=== PATIENT | male | born 1980 | race Caucasian/White ===

== ENCOUNTER 2019-10-26 08:47 | Emergency (ER) | payer OTHER, SELFPAY ==
[2019-10-26 08:51] VITALS: BP 151/98; PULSE 65; RESP 20; TEMP 36.6; O2SAT 98; BMI 31.8
--- NOTE | 2019-10-26 09:03 | ED_ITS ---
HPI - Abdominal Pain General: Chief Complaint: Abdominal Pain Stated Complaint: back pain Time Seen by Provider: 10/26/19 09:01 History of Present Illness: HPI narrative: Patient is a 39-year-old male comes into the ED with left flank pain. Says it started last night. He has not taken any pain medication for relief. Denies any problems urinating or blood in the urine. Patient has had kidney stones in the past and he says this feels exactly like previous kidney stones. Patient rates his pain at 10/10. Denies any other abdominal pain. Denies fever, chills, shortness of breath, chest pain, sore throat, nasal drainage, ear pain, vomiting, change or bowel issues. Review of Systems General: Reports: 10 or more systems reviewed and unremarkable except in HPI and below PFSH ED PFSH: Statuses (acute, chronic, etc) shown below reflect problem list status as previously entered and may not be historically accurate Medical History (Updated 10/26/19 @ 11:44 by WAQAS Garg) Hyperlipidemia (Acute) Hypertension (Acute) Kidney stones (Acute) Social History Smoking and tobacco status: former smoker Physical Exam Const: COMMON NORMALS: oriented x3 OTHER: Patient appeared in pain and was uncomfortable and walking around the room when I entered. HENMT: COMMON NORMALS: normocephalic HEAD & SCALP: normocephalic MOUTH: oral and palatal mucosa normal THROAT: posterior oropharynx normal and uvula midline Neck/C-Spine: COMMON NORMALS: supple GENERAL: Yes normal visual inspection Resp: COMMON NORMALS: normal respiratory effort, no retractions, no use of accessory muscles and clear to auscultation bilaterally AUSCULTATION: clear to auscultation bilaterally Cardio: COMMON NORMALS: regular rate, regular rhythm, S1 normal heart sound, S2 normal heart sound, no gallops, no clicks, no murmurs and peripheral pulses 2+ throughout RATE: regular rate RHYTHM: regular rhythm HEART SOUNDS: S1 normal and S2 normal PERIPHERAL PULSES: pulses 2+ throughout GI: COMMON NORMALS: normal to inspection, nondistended, normoactive bowel sounds, soft to palpation, non-tender and no masses PALPATION: Yes soft : COMMON NORMALS: Yes no CVA tenderness BLADDER/KIDNEY EXAM: Yes no CVA tenderness Back/Pelvis: COMMON NORMALS: no CVA tenderness Neuro: COMMON NORMALS: oriented x3 GAIT: Yes normal gait Course Vital Signs: Vital signs: Vital Signs Temperature 98 F 10/26/19 08:51 Pulse Rate 68 10/26/19 12:03 Respiratory Rate 18 10/26/19 12:03 Blood Pressure 126/76 10/26/19 12:03 Pulse Oximetry 98 10/26/19 12:03 MDM - Abdominal Pain Lab Data: Labs: Lab Results 10/26/19 Range/Units 10:17 Urine Color Yellow (Yellow) Urine Appearance Clear (CLEAR) Urine pH 5.0 (5-7) Ur Specific Gravit y 1.015 (1.005-1.030) Urine Protein Neg (Negative) Urine Glucose (UA) Norm (Normal) Urine Ketones Negative (Negative) Urine Occult Blood 3+ H (Negative) Urine Nitrate Negative (Negative) Urine Bilirubin Neg (Negative) Urine Urobilinogen Norm (Negative) mg/dL Ur Leukocyte Jody ase Negative (Negative) Urine RBC 40-50 H (0-2) /hpf Urine WBC None (0-5) /hpf Ur Squamous Epith Cells 10-15 H (0-5) Urine Bacteria Trace (NONE) Urine Mucus 2+ Discharge Plan Discharge Patient Disposition: Home, Self-Care Clinical Impression: Calculus of kidney Condition: Stable Prescriptions: New tamsulosin 0.4 mg capsule 0.4 mg PO DAILY Qty: 10 RF: 0 No Action simvastatin 20 mg Tablet 20 mg PO DAILY RF: 0 lisinopril 5 mg Tablet 5 mg PO DAILY RF: 0 Referrals: Javon Victor MD [Physician] - (loss prevention operations manager was asked to make referral for patient to Dr. Fraser office, will call clinic on 10.27.19 due clinic being closed for the holiday.) Edgar Nolasco DO [Primary Care Provider] - Discharge Diet: Regular Discharge Activity: Resume usual activity Patient Instructions: Hydrocodone/Acetaminophen (By mouth), Tamsulosin (By mouth), Kidney Stones, Flank Pain (ED), Pain Management Activity Restrictions/Additional Instructions: An [facility] urology referral has been made for you in the should be calling you in the next several days to set up an appointment. Drink plenty of fluids. Continue to strain urine to catch stone, so it can be analyzed. Take the prescribed tamsulosin to help pass stone. You can take Aleve or ibuprofen for pain management. Return to ED if you have trouble passing the stone or symptoms worsen. I'm giving you a prescription for hydrocodone?use this medication as needed breakout pain. Discharge Date/Time: 10/26/19 12:40 Coding Level of Care Code ED Field Application Engineer for Shalom Jose
--- NOTE | 2019-10-26 09:09 | PC.NURSE ---
Pt given urinal for urine specimen collection. Pt states he does not believe he can void at this time.
[2019-10-26 09:49] VITALS: RESP 18
[2019-10-26] MEDS: morphine 4 mg/mL SDV 1 mL IVP (09:49)
[2019-10-26] MEDS: ondansetron 2 mg/ML SDV 2 mL 4 MG IVP (09:49)
[2019-10-26] MEDS: sodium chloride 0.9% 1,000 ML 999 ML IV (09:50)
--- NOTE | 2019-10-26 10:13 | PC.NURSE ---
Rounded on pt, unable to void at this time. Feels much pain relief from Morphine.
--- NOTE | 2019-10-26 10:43 | CT_ITS ---
WS: [id number] CT ABDOMEN PELVIS TECHNIQUE: Noncontrast CT of the abdomen and pelvis with coronal and sagittal reformatted images. CLINICAL INFORMATION: Left flank pain COMPARISON: None. DLP: [address] scans at [facility] use at least one of these dose optimization techniques: automat ed exposure control; mA and/or kV adjustment per patient size (includes targeted exams where dose is matched to clinical indication); or iterative reconstruction. FINDINGS: Mild left hydronephrosis. Left mid ureteral calculus measuring 3 mm.Distal ureter is normal. Minimal inflammatory stranding about the left kidney. Additional tiny nonobstructing bilateral calyceal tip c alculi. Right ureter is normal. Noncontrast liver and gallbladder are unremarkable.Noncontrast spleen is unremarkable. Normal GE junc tion. Atelectasis in the lung bases. Normal caliber abdominal aorta. Normal small and large bowel. Ap pendix is normal. No free fluid in the pelvis. No abdominal lymphadenopathy. No other significant fin dings. Notified José Miguel Bonilla M.D. at 10/26/2019 11:[address]/CT kidney stone [id number] IMPRESSION: 1. 3 mm obstructing left midureteral calculus with mild left hydronephrosis. 2. Bilateral tiny nonobstructing calyceal tip calculi. 3. Appendix is normal and decompressed the right lower quadrant.
[2019-10-26 10:47] LABS: Add Urine Microscopic? YES; Bilirubin Urine Neg (Negative); Blood Urine 3+ (Negative); Glucose Urine UA Norm (Normal); Ketones Urine Negative (Negative); Leukocyte Esterase Urine Negative (Negative); Nitrate Urine Negative (Negative); Protein Urine Neg (Negative); Specific Gravity, Urine 1.015 (1.005-1.030); Urine Appearance Clear (CLEAR); Urine Color Yellow (Yellow); Urobilinogen Urine Norm (Negative)
[2019-10-26 10:48] VITALS: BP 131/79; PULSE 75; RESP 17; O2SAT 96
[2019-10-26 10:56] LABS: Add Urine Culture? Yes; Bacteria Urine TRACE; Mucus Urine 2+; RBC Urine 40-50 /hpf (0-2)
--- NOTE | 2019-10-26 11:06 | PC.NURSE ---
Pt given strainer for voiding
[2019-10-26] MEDS: tamsulosin 0.4 mg Capsule PO (11:40)
[2019-10-26 12:03] VITALS: BP 126/76; PULSE 68; RESP 18; O2SAT 98
--- NOTE | 2019-10-27 14:32 | DCPLANNER ---
social work case manager was asked to schedule a follow up appointment for patient with Dr. Victor. social work case manager called the office of Dr. Victor, spoke with Dana, gave clinic patients information. social work case manager was told that patients information would be printed and given to Kim for review. Clinic will call patient with appointment information. social work case manager will call clinic for appointment information.
--- NOTE | 2019-11-01 15:08 | DCPLANNER ---
application manager called to confirm that a follow up appointment had been scheduled for patient. application manager was told that an appointment had been scheduled for 10.31.19, patient cancelled appointment.
== END 2019-10-26 12:40 | disposition home or self-care (01) ==
PROVIDERS: Physician Assistant; Emergency Provider Family Medicine; Family Provider Internal Medicine; PCP Internal Medicine
DX: N20.0 Calculus of kidney (principal); Z87.891 Personal history of nicotine dependence; I10 Essential (primary) hypertension; E78.5 Hyperlipidemia, unspecified; Z87.442 Personal history of urinary calculi
CPT/HCPCS: 74176; 81003; 87086; 96360; 96374; 99282; J2270; J2405; J7030

== ENCOUNTER → 2021-03-03 11:06 | Outpatient (BNVA) | payer BC, SELFPAY | PROVIDERS: Family Provider Internal Medicine; PCP Internal Medicine; Visit Provider Nurse Practitioner | DX: N20.0 Calculus of kidney (principal) | CPT/HCPCS: 81000; 87086 ==

== ENCOUNTER → 2024-05-30 11:35 | Outpatient (BNVA) | payer BC, SELFPAY | PROVIDERS: Family Provider Internal Medicine; PCP Internal Medicine; Visit Provider Nurse Practitioner Family | DX: R50.9 Fever, unspecified (principal) | CPT/HCPCS: 87426 ==

== ENCOUNTER → 2025-05-08 15:54 | Outpatient (BNVA) | payer BC, SELFPAY | PROVIDERS: PCP Family Medicine; Visit Provider Family Medicine | DX: E11.9 Type 2 diabetes mellitus without complications (principal) | CPT/HCPCS: 80053; 83036; 85025 ==

== ENCOUNTER → 2025-07-31 16:24 | Outpatient (BNVA) | payer BC, SELFPAY | PROVIDERS: PCP Family Medicine; Visit Provider Family Medicine | DX: E11.9 Type 2 diabetes mellitus without complications (principal) | CPT/HCPCS: 80048; 83036 ==